=== PATIENT | male | born 1960 | race African-American/Black ===

== ENCOUNTER → 2016-11-29 | Outpatient (CLI) | payer OTHER ==
--- NOTE | ~2016-11-29 | CR63 ---
[facility] A Service of [facility] & [facility] RADIOLOGY TEXT RESULTS PATIENT: JORDAN BATES LOCATION: [facility] : 64 UNIT #: [id number] AGE: [address]: Andrea Tsang MD SEX: M ORDER DR: [id number] [facility] [address] [place], [place] [address] [id number] O MR#: [id number] Acc #: [id number] NAME: JORDAN BATES : 1960 SEX: M STUDY DATE/TIME: 11/29/2016 14:47 UNIT: [facility] ROOM: STUDY DESCRIPTION: CR Chest 2 View Attending Physician: Andrea Tsang M.D. Referring Physician: Andrea Tsang M.D. Ordering Physician: Andrea Tsang M.D. Primary Care Physician: Ilana Hillman M.D. MEDICAL IMAGING REPORT This report is preliminary unless electronic signature is present EXAM Chest 2 views dated 11/29/2016 COMPARISON STUDIES Chest 2 views dated 06/28/2016 HISTORY Paraesophageal hernia. Left thoracotomy a month ago with shortness of air. FINDINGS 2 views of the chest were obtained. Lungs are relatively well aerated without any significant new acute cardiopulmonary disease. Heart is of normal size. Bones are unremarkable except for mild anterior endplate osteophytes in the thoracic spine. Dictated by... Gage Emmanuel M.D. THIS IS AN ELECTRONICALLY VERIFIED REPORT Gage Emmanuel M.D. at 11/29/2016 5:04 PM CPR/odessa TD: 11/29/2016 16:58 JOB #: [id number] MEDICAL IMAGING REPORT COPY
== END | disposition home or self-care (01) ==
LOC: CRAD 14:21
DX: K44.9 Diaphragmatic hernia without obstruction or gangrene (principal)
CPT/HCPCS: 71020